=== PATIENT | female | born 1970 | race Caucasian/White ===

== ENCOUNTER 2019-04-09 14:31 | Outpatient (CLI) | payer BC, SELFPAY ==
--- NOTE | 2019-04-09 14:35 | ECG_ITS ---
Measurements Intervals [place] Rate: 74 P: 35 HI: 156 QRS: -3 QRSD: 90 T: 3 QT: 372 QTc: 414 Interpretive Statements SINUS RHYTHM LOW QRS VOLTAGE IN PRECORDIAL LEADS BORDERLINE R WAVE PROGRESSION, ANTERIOR LEADS BORDERLINE ST-T WAVE ABNORMALITY- ANT/INF LEADS BASELINE ARTIFACT- I, III, AVR, AVL, AVF BORDERLINE ECG Electronically Signed On 04-09-2019 15:40:29 [facility] by Trace Bennett D.O.
[2019-04-09 15:47] LABS: Blood Urea Nitrogen 16 mg/dL (7-17); Calcium 9.8 mg/dL (8.4-10.2); Carbon Dioxide 25 mmol/L (22-30); Chloride 99 mmol/L (98-107); Estimated Glomerular Filt Rate > 60; Glucose 112 mg/dL (65-105); Potassium 4.2 mmol/L (3.4-5.0); Sodium 137 mmol/L (137-145)
== END 2019-04-09 14:32 | disposition home or self-care (01) ==
LOC: ANHSURGERY 14:35
PROVIDERS: Anesthesiology; PCP Family Medicine; Visit Provider Obstetrics & Gynecology
DX: Z01.812 Encounter for preprocedural laboratory examination (principal); I10 Essential (primary) hypertension
CPT/HCPCS: 36415; 80048; 93005

== ENCOUNTER 2019-04-20 01:05 | Day surgery (SDC) | payer BC, SELFPAY ==
[2019-04-05 13:40] VITALS: BMI 37.5
[2019-04-20] VITALS (12 sets, daily range): BP systolic 123–137; BP diastolic 66–88; PULSE 59–79; RESP 10–20; TEMP 35.9–37.6; O2SAT 93–100
--- NOTE | 2019-04-20 08:34 | WPDANESEPP ---
Anes - Eval Pre Procedure Procedure: Operation Date: 04/20/19 12:00 Proposed Procedures p Hysteroscopy, Dilation And Curettage, Bilateral Salpingectomy - Varun Diggs MD Date/Time: 04/20/19 08:34 Pre Op Diagnosis: Thickened Endometrium/ Desires Sterilization Patient Data Age: 48 Gender: F Height: 1.55 m Weight: 90 kg Allergies Allergy/AdvReac Type Severity Reaction Status Date / Time topiramate Allergy Unknown LOOPY Verified 04/05/19 13:38 FEELING Home Medications Medication Instructions Recorded Confirmed Type propranolol 60 mg capsule,24 60 mg PO DAILY #90 cap 01/04/19 04/05/19 Rx hr,extended release oxybutynin chloride 5 mg tablet 10 mg PO DAILY 03/02/19 04/05/19 History spironolactone 50 mg tablet 50 mg PO DAILY 03/02/19 04/05/19 History levothyroxine 125 mcg tablet 125 mcg PO DAILY #90 tablet 03/22/19 04/05/19 Rx valacyclovir 500 mg tablet 500 mg PO Q12H #60 tablet 04/17/19 Rx Patient hx anesthesia problems: none Family hx anesthesia problems: none PMFSH Past Medical History Medical History Achilles tendinosis of left lower extremity Essential (primary) hypertension Other specified acquired hypothyroidism Other specified disorders of kidney and ureter one functioning kidney Raynaud's syndrome Surgical History Surgical History History of partial thyroidectomy Social History Social History (System 03/09/19 @ 09:13 by Naa Goncalves) Smoking status: Never smoker Alcohol intake: never Exam Day of Procedure 04/20/19 08:34 Patient weight: obese
--- NOTE | 2019-04-20 09:53 | PM.HPGS ---
History of Present Illness History of Present Illness Consent: Risks, benefits, and alternatives have been discussed and questions answered. Patient agrees to proceed with procedure. Chief complaint: Thickened Endometrium/ Desires Sterilization Narrative: Agnieszka Silva is a 48 year old female presented with thickened endometrium on ultrasound and no menstrual cycles. Patienhas a history of hyperplasia. Patient also desires permanent sterilization. [facility] Past Medical History Medical History (Updated 04/20/19 @ 10:01 by Varun Diggs MD) Achilles tendinosis of left lower extremity Essential (primary) hypertension Other specified acquired hypothyroidism Other specified disorders of kidney and ureter one functioning kidney Raynaud's syndrome Request for sterilization Single kidney Thickened endometrium Surgical History Surgical History History of partial thyroidectomy Family History Family History Mother Family history of thyroid disease Hypertension Grandparent Cerebrovascular accident Diabetes mellitus Social History Social History Smoking status: Never smoker Alcohol intake: never Meds Home Medications and Allergies Home Medications Medication Instructions Recorded Confirmed Type propranolol 60 mg capsule,24 60 mg PO DAILY #90 cap 01/04/19 04/20/19 Rx hr,extended release oxybutynin chloride 5 mg tablet 10 mg PO DAILY 03/02/19 04/20/19 History spironolactone 50 mg tablet 50 mg PO DAILY 03/02/19 04/20/19 History levothyroxine 125 mcg tablet 125 mcg PO DAILY #90 tablet 03/22/19 04/20/19 Rx valacyclovir 500 mg tablet 500 mg PO Q12H #60 tablet 04/17/19 04/20/19 Rx hydrocodone-acetaminophen [[place]] 1 tablet PO Q4H PRN #20 tablet 04/20/19 Rx Allergies Allergy/AdvReac Type Severity Reaction Status Date / Time topiramate AdvReac Unknown LOOPY Verified 04/20/19 10:46 FEELING Exam Const: General: no acute distress GI: GI Palp: Yes Soft to palpation : External Female Exam: normal external appearance Speculum Exam - Vagina: vaginal bleeding Assessment and Plan Assessment and plan (1) Thickened endometrium: Code(s): R93.89 - Abnormal findings on diagnostic imaging of other specified body structures Status: Acute Assessment and Plan: thickened endometrium - schedule for hysteroscopy dilaition and curettage risk and benefits reviewed. (2) Request for sterilization: Code(s): Z30.2 - Encounter for sterilization Status: Acute Assessment and Plan: scheduled for salpingectomy. risk and benefits reviewed.
[2019-04-20] MEDS: LACTATED RINGERS 1,000 ML 30 ML IV CONT ×2 (10:30→13:39)
--- NOTE | 2019-04-20 11:47 | WPDANESEPPF ---
Anes - Initial Pre Proc Eval Procedure: Operation Date: 04/20/19 12:00 Proposed Procedures p Hysteroscopy, Dilation And Curettage, Bilateral Salpingectomy - Varun Diggs MD Date/Time: 04/20/19 11:47 Surgeon: Varun Diggs MD Pre Op Diagnosis: Thickened Endometrium/ Desires Sterilization Patient Data Age: 48 Gender: F Height: 1.55 m Weight: 85.21 kg Last Vital Signs Temp 37.6 C H 04/20/19 10:45 Pulse 67 04/20/19 10:45 Resp 16 04/20/19 10:45 BP 126/82 04/20/19 10:45 Pulse Ox 100 04/20/19 10:45 Allergies Allergy/AdvReac Type Severity Reaction Status Date / Time topiramate AdvReac Unknown LOOPY Verified 04/20/19 10:46 FEELING Home Medications Medication Instructions Recorded Confirmed Type propranolol 60 mg capsule,24 60 mg PO DAILY #90 cap 01/04/19 04/20/19 Rx hr,extended release oxybutynin chloride 5 mg tablet 10 mg PO DAILY 03/02/19 04/20/19 History spironolactone 50 mg tablet 50 mg PO DAILY 03/02/19 04/20/19 History levothyroxine 125 mcg tablet 125 mcg PO DAILY #90 tablet 03/22/19 04/20/19 Rx valacyclovir 500 mg tablet 500 mg PO Q12H #60 tablet 04/17/19 04/20/19 Rx Patient hx anesthesia problems: none Family hx anesthesia problems: none PMFSH Past Medical History Medical History (Updated 04/20/19 @ 10:01 by Varun Diggs MD) Achilles tendinosis of left lower extremity Essential (primary) hypertension Other specified acquired hypothyroidism Other specified disorders of kidney and ureter one functioning kidney Raynaud's syndrome Request for sterilization Single kidney Thickened endometrium Surgical History Surgical History History of partial thyroidectomy Family History Family History Mother Family history of thyroid disease Hypertension Grandparent Cerebrovascular accident Diabetes mellitus Social History Social History Smoking status: Never smoker Alcohol intake: never Anes - Eval Final PreProcedure Day of Procedure 04/20/19 11:47 Patient weight: obese Heart: regular rate and rhythm Lungs: clear to auscultation and normal air movement Airway: Mallampati scale Neurological: alert and oriented Last oral intake: >/= 8 hours ASA classification: III Emergent: no Anesthetic plan: proceed Anesthesia type and monitoring: general LMA and standard monitoring Informed Consent: The patient's anesthetic plan and its attendant risks and benefits were discussed with the patient/family/POA. Questions were solicited and answers provided to the satisfaction of the patient/family/POA.
--- NOTE | 2019-04-20 13:34 | PM.OP ---
Procedure Note - Brief Procedure Note - Brief Date of procedure: 04/20/19 Pre-op diagnosis: Thickened Endometrium/ Desires Sterilization Procedure performed: laparoscopy with bilateral tubal ligation and hysteroscopy with dilation and curettage Anesthesia: MIKAYLA Surgeon: Varun Diggs MD Estimated blood loss (mL): 10 Drains: No Packing: No Pathology: yes Complications: None Condition: stable Disposition: observation Findings: bicornuate uterus, small left hemorrhagic cyst
[2019-04-20] MEDS: ONDANSETRON INJ 4 MG/2 ML VIAL IV PUSH (14:28)
--- NOTE | 2019-04-20 15:05 | SUR.PHASEI ---
1507 updated spouse in waiting room
--- NOTE | 2019-04-21 19:41 | OP_ITS ---
DATE OF PROCEDURE: 04/20/2019 PREOPERATIVE DIAGNOSIS: Desires permanent sterilization and thickened endometrium. POSTOPERATIVE DIAGNOSIS: Desires permanent sterilization and thickened endometrium. PROCEDURE PERFORMED: Bilateral salpingectomy laparoscopic and hysteroscopy with dilation and curettage. ANESTHESIA: General. COMPLICATIONS: None. ESTIMATED BLOOD LOSS: 10 cc. DESCRIPTION OF PROCEDURE: The patient was taken to the operating room, IV running, prepared and draped in normal sterile fashion, placed in the dorsal lithotomy position. [place] speculum was placed into the vagina. Anterior lip of the cervix was grasped with a single-tooth tenaculum. Uterus was sounded to 8 cm. Weatherly manipulator was placed. Bladder was drained prior to placing bivalve speculum and it was then turned to the abdomen, where a 1 cm infraumbilical incision was made. A Veress needle was then inserted. Drop test passed. Abdomen was insufflated with CO2 gas to a 10 mm pressure. The trocar was then placed under direct visualization with laparoscope. Bilateral incisions were made in the right and left quadrant. 5 mm trocars were placed under direct visualization. The findings noted were bicornuate uterus with a small 1 cm paratubal cyst and a 2 cm hemorrhagic cyst on the left ovary, otherwise no other findings. The right tube was grasped with graspers and the LigaSure device was used to coagulated and transected. The tube was taken through the 5 mm port. The left tube was coagulated and transected and removed through the port. The port incisions were examined and the trocars were removed under direct visualization. The trocar incisions were then closed with 4-0 Vicryl suture. After allowing the CO2 gas to escape from the abdomen. Attention was then turned to the vaginal portion, where the acorn manipulator was removed. The cervix was serially dilated with Hegar dilators and the hysteroscope was introduced visualizing the right cornu and the left cornu. Left cornea was thickened endometrium. Curettage was performed in both cornu. Specimens were sent to pathology. Sponge, lap, and needle counts were correct x2. The patient was taken to recovery room in stable condition. Estimated blood loss was 10 cc. D I MT: [facility]
== END 2019-04-20 16:30 | disposition home or self-care (01) ==
PROVIDERS: PCP Family Medicine; Visit Provider Obstetrics & Gynecology
PROC: 0UDB8ZZ Extraction of Endometrium, Via Natural or Artificial Opening Endoscopic (ICD-10-PCS; CPT 58558; principal; 2019-04-20 12:00)
DX: Z30.2 Encounter for sterilization (principal); N85.8 Other specified noninflammatory disorders of uterus; I10 Essential (primary) hypertension; E03.9 Hypothyroidism, unspecified; N28.9 Disorder of kidney and ureter, unspecified; I73.00 Raynaud's syndrome without gangrene; E66.9 Obesity, unspecified; Z68.35 Body mass index [BMI] 35.0-35.9, adult
CPT/HCPCS: 58558; 58661; 88302; 88305; A9270; J0131; J0330; J1100; J1200; J2250; J2405; J2704; J3010; J7030; J7120

== ENCOUNTER 2019-10-19 09:53 | Outpatient (CLI) | payer BC, SELFPAY ==
--- NOTE | 2019-10-19 10:25 | EST_ITS ---
Patient Info Name: Agnieszka Silva Age: 49 years : 1970 Gender: Female Ht: 61 in Wt: 190 lbs BSA: 1.97 m2 HR: 68 bpm BP: 129 / 76 mmHg Heart Rhythm: Sinus Rhythm Exam Date: 10/19/2019 10:34 AM Exam Location: [facility] Patient Status: Outpatient Admit Date: 10/19/2019 Staff Ordering Physician: Naa Galloway MD Train Clerk: Louann Payne RDCS Attending Provider: TRACE TORRES DO Exercise Technologist: Salima Frausto RDCS Exercise Physician: Trace Torres DO Exam Type: CA stress echo Study Info Indications - Abnormal electrocardiogram ECG EKG - Chest pain, unspecified - Palpitations Treadmill exercise stress echocardiogram is performed. Summary 1. 1. Negative Zach exercise stress test for ischemic ST changes by ECG criteria. 2. 2. Mildy reduced functional capacity, achieving 8.9 METs of workload. 3. 3. Appropriate HR response to exercise. 4. 4. Appropriate HR recovery at 1 minute post exercise. 5. 5. Negative stress echocardiogram for ischemia by wall motion analysis. 6. 6. Patient informed of the above results. Stress Echo Findings Left Ventricle Appropriate increase in LV endocardial thickening with systole. Appropriate augmentation of contractility with systole. No wall motion abnormality. Left Ventricle Normal LV systolic function, no wall motion abnormality. Protocol: Zach Stress ECG Details Stage: REST Duration (min): 6 min : 11 sec Speed (mph): 0.0 Grade (%): 0 HR (bpm): 68 SBP (mmHg): 129 DBP (mmHg): 76 METS: --- Stage: REST Duration (min): 12 min : 31 sec Speed (mph): 0.0 Grade (%): 0 HR (bpm): 90 SBP (mmHg): 129 DBP (mmHg): 76 METS: --- Stage: STAGE 1 Duration (min): 1 min : 0 sec Speed (mph): 1.7 Grade (%): 10 HR (bpm): 109 SBP (mmHg): 129 DBP (mmHg): 76 METS: --- Stage: STAGE 1 Duration (min): 2 min : 0 sec Speed (mph): 1.7 Grade (%): 10 HR (bpm): 118 SBP (mmHg): 129 DBP (mmHg): 76 METS: --- Stage: STAGE 1 Duration (min): 3 min : 0 sec Speed (mph): 1.7 Grade (%): 10 HR (bpm): 125 SBP (mmHg): 156 DBP (mmHg): 104 METS: --- Stage: STAGE 2 Duration (min): 1 min : 0 sec Speed (mph): 2.5 Grade (%): 12 HR (bpm): 132 SBP (mmHg): 156 DBP (mmHg): 104 METS: --- Stage: STAGE 2 Duration (min): 2 min : 0 sec Speed (mph): 2.5 Grade (%): 12 HR (bpm): 143 SBP (mmHg): 173 DBP (mmHg): 107 METS: --- Stage: STAGE 2 Duration (min): 3 min : 0 sec Speed (mph): 2.5 Grade (%): 12 HR (bpm): 150 SBP (mmHg): 173 DBP (mmHg): 107 METS: --- Stage: STAGE 3 Duration (min): 1 min : 0 sec Speed (mph): 3.4 Grade (%): 14 HR (bpm): 159 SBP (mmHg): 146 DBP (mmHg): 103 METS: --- Stage: STAGE 3 Duration (min): 1 min : 3 sec Speed (mph): 0.0 Grade (%): 0 HR (bpm): 160 SBP (mmHg): 146 DBP (mmHg): 103 METS: ---
== END 2019-10-19 09:54 | disposition home or self-care (01) ==
LOC: ANHCARD 09:54
PROVIDERS: PCP Family Medicine; Visit Provider Family Medicine
DX: R00.2 Palpitations (principal); R07.89 Other chest pain; R94.31 Abnormal electrocardiogram [ECG] [EKG]
CPT/HCPCS: 93351

== ENCOUNTER → 2020-04-21 13:48 | Outpatient (CLI) | payer BC, SELFPAY ==
--- NOTE | ~2020-04-21 | MM_ITS ---
EXAMINATION: MM screening yang BI w nena HISTORY: Screening mammogram TECHNIQUE: Craniocaudal and mediolateral oblique 3-D tomosynthesis images were obtained and synthetic 2-D images were generated. CAD analysis was submitted and interpreted. COMPARISON: 02/03/2019, 01/03/2018, 12/23/2016 bilateral digital screening mammogram examinations BREAST PARENCHYMAL COMPOSITION: The breasts are almost entirely fatty. FINDINGS: There is no evidence of suspicious mass, calcification, or architectural distortion to sugg est malignancy in either breast. There has been no suspicious interval change. IMPRESSION: 1. No mammographic evidence of malignancy. 2. Recommend routine screening mammography in one year. BI-RADS Category 1: Negative Reviewed, dictated and finalized at location A. [place]
== END ==
PROVIDERS: PCP Family Medicine; Visit Provider Obstetrics & Gynecology
DX: Z12.31 Encounter for screening mammogram for malignant neoplasm of breast (principal)
CPT/HCPCS: 77063; 77067

== ENCOUNTER → 2020-06-24 14:02 | Outpatient (CLI) | payer BC, SELFPAY ==
--- NOTE | ~2020-06-24 | XR_ITS ---
XR ankle LT min 3V DATE: 06/24/2020 14:33 INDICATION: Enthesopathy. Chloé's deformity. TECHNIQUE: 4 views COMPARISON: None FINDINGS: There is soft tissue swelling along the posterior superior aspect of the calcaneus, above t he level of the mild posterior calcaneal enthesopathy. Slight plantar calcaneal enthesopathy. No fracture or bone destruction of the calcaneus. No fracture or dislocation of the ankle or disruption of the ankle mortise. No periosteal reaction or bone destruction. IMPRESSION: Focal soft tissue swelling along the posterior superior aspect of the calcaneus without u nderlying bony abnormality at this location Mild posterior and slight plantar calcaneal enthesopathy Reviewed, dictated and finalized at location A. IMPRESSION: Focal soft tissue swelling along the posterior superior aspect of t he calcaneus without underlying bony abnormality at this location Mild posterior and slight plantar calcaneal enthesopathy
== END ==
PROVIDERS: PCP Family Medicine; Visit Provider Podiatrist Foot & Ankle Surgery
DX: M77.32 Calcaneal spur, left foot (principal); M79.89 Other specified soft tissue disorders
CPT/HCPCS: 73610

== ENCOUNTER → 2021-07-10 13:46 | Outpatient (CLI) | payer BC, SELFPAY ==
--- NOTE | ~2021-07-10 | MM_ITS ---
EXAMINATION: MM screening yang BI w nena HISTORY: Screening mammogram TECHNIQUE: Craniocaudal and mediolateral oblique 3-D tomosynthesis images were obtained and synthetic 2-D images were generated. CAD analysis was submitted and interpreted. COMPARISON: 04/21/2020, 02/03/2019, 01/03/2018 bilateral screening mammogram examinations BREAST PARENCHYMAL COMPOSITION: The breasts are almost entirely fatty. FINDINGS: There is no evidence of suspicious mass, calcification, or architectural distortion to sugg est malignancy in either breast. There has been no suspicious interval change. IMPRESSION: 1. No mammographic evidence of malignancy. 2. Recommend routine screening mammography in one year. BI-RADS Category 1: Negative Reviewed, dictated and finalized at location A.
== END ==
PROVIDERS: PCP Family Medicine; Visit Provider Family Medicine
DX: Z12.31 Encounter for screening mammogram for malignant neoplasm of breast (principal)
CPT/HCPCS: 77063; 77067

== ENCOUNTER → 2022-02-23 14:30 | Outpatient (CLI) | payer BC, SELFPAY ==
--- NOTE | ~2022-02-23 | US_ITS ---
EXAMINATION: US thyroid DATE: 02/23/2022 14:54 INDICATION: Goiter. TECHNIQUE: Multiple ultrasound images of the thyroid were obtained. COMPARISON: Ultrasound 01/03/2018, 02/21/18 FINDINGS: The right thyroid lobe measures 6.1 x 2.7 x 3.8 cm. The right thyroid lobe demonstrates coarsened ech otexture and increased vascularity. No discrete nodule. The left thyroid lobe is absent. IMPRESSION: 1. Heterogeneous, hypervascular right thyroid lobe, consistent with chronic lymphocytic (Ulises) t hyroiditis. 2. Left hemithyroidectomy. Reviewed, dictated and finalized at location A. SCAPE DESIGNER IMPRESSION: 1. Heterogeneous, hypervascular right thyroid lobe, consistent with chronic lym phocytic (Ulises) thyroiditis. 2. Left hemithyroidectomy.
== END ==
PROVIDERS: PCP Family Medicine; Visit Provider Family Medicine
DX: E04.1 Nontoxic single thyroid nodule (principal)
CPT/HCPCS: 76536

== ENCOUNTER → 2022-06-15 13:05 | Outpatient (CLI) | payer BC, SELFPAY ==
--- NOTE | ~2022-06-15 | US_ITS ---
EXAMINATION: US pelvic complete w TV DATE: 06/15/2022 14:05 INDICATION: Postmenopausal bleeding for a couple months with new left lower quadrant pain TECHNIQUE: Multiple transabdominal and endovaginal sonographic images of the pelvis were obtained. COMPARISON: None. 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 Visualization is ins ufficient to differentiate bicornuate versus didelphic uterus. The right moiety measures 6.2 x 2.6 x 3.2 cm. The left moiety measures 7.6 x 4.3 x 4.0 cm. The endometrial complex measures 3 mm in the rig ht uterine moiety and 11 mm in the left uterine moiety. Posterior acoustic shadowing versus refractio n artifact extending posterior from a subtle 1.5 x 1.3 x 1.0 cm isoechoic lesion at the left uterine moiety potentially representing a small fibroid. The bilateral ovaries are not visualized. There is n o free fluid in the pelvis. IMPRESSION: 1. 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 2. Possible 1.5 cm uterine fibroid at the left uterine moiety. Reviewed, dictated and finalized at location L. IMPRESSION: 1. 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 2. Possible 1.5 cm uterine fibroid at the left uterine moiety.
== END ==
PROVIDERS: PCP Family Medicine; Visit Provider Obstetrics & Gynecology
DX: N95.0 Postmenopausal bleeding (principal)
CPT/HCPCS: 76830; 76856

== ENCOUNTER 2024-06-21 14:50 | Outpatient (CLI) | payer BC, SELFPAY ==
--- NOTE | ~2024-06-21 | MM_ITS ---
EXAMINATION: MM screening yang BI w nena HISTORY: Screening TECHNIQUE: Craniocaudal and mediolateral oblique 3-D tomosynthesis images were obtained and synthetic 2-D images were generated. CAD analysis was submitted and interpreted. COMPARISON: Comparison to multiple prior studies sequentially, with oldest reviewed study dated 09/02. BREAST PARENCHYMAL COMPOSITION: Not dense: There are scattered areas of fibroglandular density. FINDINGS: There is no evidence of suspicious mass, calcification, or architectural distortion to sugg est malignancy in either breast. There has been no suspicious interval change. IMPRESSION: 1. No mammographic evidence of malignancy. 2. Recommend routine screening mammography in one year. BI-RADS Category 1: Negative Reviewed, dictated and finalized at location A.
== END 2024-06-21 14:51 | disposition home or self-care (01) ==
PROVIDERS: PCP Family Medicine; Visit Provider Obstetrics & Gynecology
DX: Z12.31 Encounter for screening mammogram for malignant neoplasm of breast (principal)
CPT/HCPCS: 77063; 77067